=== PATIENT | female | born 1955 | race Caucasian/White ===

== ENCOUNTER 2016-11-22 08:31 | Emergency (ER) | payer SELFPAY | END 2016-11-22 08:59 | disposition home or self-care (01) | LOC: BURERS 08:31 | DX: K08.89 Other specified disorders of teeth and supporting structures (principal); R22.0 Localized swelling, mass and lump, head | CPT/HCPCS: 99282 ==

== ENCOUNTER 2021-04-15 15:35 | Emergency (ER) | payer MEDICARE, SELFPAY ==
[2021-04-15] MEDS ORDERED: Aspirin Chewable 81 MG TAB ONE (16:09)
[2021-04-15] MEDS ORDERED: Nitroglycerin 0.4 MG TAB 1 EACH ONE ×2 (16:09→16:58)
[2021-04-15 16:21] LABS: #Basophils 0.1 thou/uL (0.0-0.2); #Eosinphils 1.3 thou/uL (0.0-0.7); #Lymphocytes 0.5 thou/uL (1.20-3.40); #Monocytes 0.8 thou/uL (0.11-0.59); #Neutrophils 4.7 thou/uL (1.40-6.50); %Basophils 1.2 % (0.0-1.0); %Eosinophils 17.6 % (0.0-10.0); %Lymphocytes 6.8 % (21.0-51.0); %Neutrophils 63.4 % (42.0-75.0); ALT (SGPT) 15 U/L (8-55); AST (SGOT) 31 U/L (5-34); Alkaline Phosphatase 77 U/L (40-110); Anion Gap 16 mmol/L (10-20); BUN (Urea Nitrogen) 59 mg/dL (9.8-20.1); Bilirubin, Total 0.3 mg/dL (0.2-1.2); Calc. Creatinine Clearance 0 mL/min (70-130); Calcium 8.7 mg/dL (7.8-10.44); Carbon Dioxide 14 mmol/L (23-31); Chloride 114 mmol/L (98-107); Globulin 2.7 g/dL (2.4-3.5); Glucose 229 mg/dL (80-115); Hemoglobin 7.7 g/dL (12.0-16.0); Mean Corpuscular HGB CONC 32.6 g/dL (32.0-36.0); Mean Corpuscular Hemoglobin 30.2 pg (27.0-31.0); Mean Corpuscular Volume 92.7 fL (78.0-98.0); Mean Platelet Volume 9.9 fL (7.4-10.4); Platelet Count 115 thou/uL (130-400); Platelet Morphology Comment Appears Decreased; Potassium 5.4 mmol/L (3.5-5.1); Protein, Total 6.7 g/dL (5.8-8.1); RBC Distribution Width 13.4 % (11.5-14.5); Red Blood Cell (RBC) Count 2.56 mill/uL (4.20-5.40); Sodium 139 mmol/L (136-145); White Blood Cell (WBC) Count 7.4 thou/uL (4.8-10.8)
[2021-04-15 16:29] LABS: Manual Diff?? NO
[2021-04-15 16:30] LABS: MDiff Complete? YES
[2021-04-15 16:54] LABS: CKMB 10.8 ng/mL (0-6.6)
[2021-04-15] MEDS ORDERED: Furosemide 40 MG/4 ML VIAL ONE (16:58)
[2021-04-15 17:19] LABS: SARS-CoV-2 NAA Rapid Test Not Detected (NotDetected)
[2021-04-15 17:45] LABS: INR-International Normal Ratio 1.1; Prothrombin Time 14.2 sec (12.0-14.7)
[2021-04-15] MEDS ORDERED: Heparin 25,000 units/D5W 500 ML ONE (18:49)
[2021-04-15] MEDS ORDERED: Heparin 5,000 UNITS/ML VIAL ONE (18:49)
[2021-04-15] MEDS ORDERED: Nitroglycerin 2% Ointment 1 INCH/1 GM Packet ONE (18:50)
[2021-04-15 20:53] LABS: CKMB 11.3 ng/mL (0-6.6)
[2021-04-15] MEDS ORDERED: diphenhydrAMINE 25 MG CAP ONE (21:29)
[2021-04-16 00:53] LABS: Bilirubin Negative (Negative); Blood, Urine Small (Negative); Clarity Clear (Clear); Glucose, Urine (Dipstick) Negative (Negative); Ketone, Urine Negative (Negative); Leukocyte Negative (Negative); Nitrite Negative (Negative); Protein, Urine (Dipstick) 30 mg/dL (Neg-Trace); Specific Gravity, Urine 1.015 (1.005-1.030); Urobilinogen 0.2 mg/dL (Less than 2)
[2021-04-16 00:59] LABS: Bacteria/HPF Rare-Few HPF (None Seen); RBC/HPF 0-3 HPF (0-3); WBC/HPF 0-3 HPF (0-3)
== END 2021-04-16 00:45 | disposition short-term general hospital (02) ==
LOC: BURERS 15:35
DX: I21.4 Non-ST elevation (NSTEMI) myocardial infarction (principal); I50.9 Heart failure, unspecified; N17.9 Acute kidney failure, unspecified; D64.9 Anemia, unspecified; E87.5 Hyperkalemia; Z20.822 Contact with and (suspected) exposure to COVID-19; J44.9 Chronic obstructive pulmonary disease, unspecified; F17.210 Nicotine dependence, cigarettes, uncomplicated
CPT/HCPCS: 0240U; 36415; 71045; 80053; 81003; 81015; 82274; 82553; 83880; 84484; 85025; 85610; 85730; 93005; 96374; 96375; J1644; J1940; Q0163

== ENCOUNTER 2021-06-04 13:17 | Emergency (ER) | payer MEDICARE ==
[2021-06-04 13:46] LABS: #Basophils 0.1 thou/uL (0.0-0.2); #Eosinphils 3.1 thou/uL (0.0-0.7); #Lymphocytes 0.9 thou/uL (1.20-3.40); #Monocytes 0.8 thou/uL (0.11-0.59); #Neutrophils 7.7 thou/uL (1.40-6.50); %Basophils 1.1 % (0.0-1.0); %Eosinophils 24.2 % (0.0-10.0); %Lymphocytes 6.7 % (21.0-51.0); %Monocytes 6.5 % (0.0-10.0); %Neutrophils 61.4 % (42.0-75.0); Hemoglobin 8.3 g/dL (12.0-16.0); Mean Corpuscular HGB CONC 32.6 g/dL (32.0-36.0); Mean Corpuscular Hemoglobin 29.1 pg (27.0-31.0); Mean Corpuscular Volume 89.1 fL (78.0-98.0); Mean Platelet Volume 7.7 fL (7.4-10.4); Platelet Count 171 thou/uL (130-400); Red Blood Cell (RBC) Count 2.84 mill/uL (4.20-5.40); White Blood Cell (WBC) Count 12.6 thou/uL (4.8-10.8)
[2021-06-04 14:02] LABS: ALT (SGPT) 18 U/L (8-55); AST (SGOT) 15 U/L (5-34); Albumin 3.7 g/dL (3.4-4.8); Alkaline Phosphatase 109 U/L (40-110); Anion Gap 15 mmol/L (10-20); BUN (Urea Nitrogen) 67 mg/dL (9.8-20.1); Bilirubin, Total 0.6 mg/dL (0.2-1.2); Calc. Creatinine Clearance 0 mL/min (70-130); Carbon Dioxide 16 mmol/L (23-31); Chloride 108 mmol/L (98-107); Globulin 3.4 g/dL (2.4-3.5); Glucose 285 mg/dL (80-115); Protein, Total 7.1 g/dL (5.8-8.1); Sodium 132 mmol/L (136-145)
[2021-06-04 14:03] LABS: Potassium 6.9 mmol/L (3.5-5.1)
[2021-06-04] MEDS ORDERED: Dextrose 50% Abboject 50 ML SYRINGE ONE (14:20)
[2021-06-04] MEDS ORDERED: Insulin Regular 300 UNITS/3 ML VIAL ONE (14:20)
[2021-06-04] MEDS ORDERED: Furosemide 40 MG/4 ML VIAL ONE (14:20)
[2021-06-04] MEDS ORDERED: Calcium Gluc 4.6 MEQ/10 ML (100 MG/ML) ONE (14:20)
[2021-06-04 15:59] LABS: SARS-CoV-2 NAA Rapid Test Not Detected (NotDetected)
[2021-06-04] MEDS ORDERED: Sodium Bicarb 50 MEQ/50 ML Abboject 8.4% SYRINGE ONE (16:14)
[2021-06-04 16:32] LABS: Anion Gap 13 mmol/L (10-20); BUN (Urea Nitrogen) 66 mg/dL (9.8-20.1); Calc. Creatinine Clearance 0 mL/min (70-130); Calcium 8.9 mg/dL (7.8-10.44); Carbon Dioxide 17 mmol/L (23-31); Chloride 112 mmol/L (98-107); Glucose 100 mg/dL (80-115); Potassium 6.3 mmol/L (3.5-5.1); Sodium 136 mmol/L (136-145)
== END 2021-06-04 18:19 | disposition short-term general hospital (02) ==
LOC: BURERS 13:17
DX: E87.5 Hyperkalemia (principal); N17.9 Acute kidney failure, unspecified; D64.9 Anemia, unspecified; D72.10 Eosinophilia, unspecified; R73.9 Hyperglycemia, unspecified; J44.9 Chronic obstructive pulmonary disease, unspecified; I25.2 Old myocardial infarction; I50.9 Heart failure, unspecified; E78.5 Hyperlipidemia, unspecified; N18.9 Chronic kidney disease, unspecified; K21.9 Gastro-esophageal reflux disease without esophagitis; K74.60 Unspecified cirrhosis of liver; Z20.822 Contact with and (suspected) exposure to COVID-19; Z87.891 Personal history of nicotine dependence; Z79.82 Long term (current) use of aspirin; Z79.899 Other long term (current) drug therapy
CPT/HCPCS: 80048; 80053; 82962; 84484; 85025; 93005; 94760; 96374; 96375; 99285; J2001; U0002; 36416; 36415-59; J1815; J1940